=== PATIENT | female | born 1965 | race Caucasian/White ===

== ENCOUNTER 2021-05-14 02:31 | Emergency (ER) | payer OTHER ==
[~2021-05-14] VITALS: Ht 162.6 cm; Wt 63.5 kg
[2021-05-14 03:00] VITALS: BP 139/78
[2021-05-14] MEDS ORDERED: AMOX-430 PO (03:04)
[2021-05-14] MEDS ORDERED: AMOX/CLAVULANATE 875 MG TABLET ONE (03:18)
--- NOTE | 2021-05-14 03:21 | NUR ---
Patient discharged to home in stable condition. Written and verbal after care instructions given. Patient verbalizes understanding of instruction.
[2021-05-14] MEDS ORDERED: AMOX/CLAVULANATE 875 MG TABLET PO ONE (03:30)
== END 2021-05-14 03:21 | disposition home or self-care (01) ==
LOC: ER 02:54
DX: S60.412A Abrasion of right middle finger, initial encounter (principal); Z88.6 Allergy status to analgesic agent; W54.0XXA Bitten by dog, initial encounter; Y93.89 Activity, other specified; Y92.89 Other specified places as the place of occurrence of the external cause; Y99.8 Other external cause status

== ENCOUNTER 2022-12-03 16:01 | Emergency (ER) | payer MEDICARE, OTHER ==
[~2022-12-03] VITALS: Ht 162.6 cm; Wt 63.5 kg
[~2022-12-03 16:01] MED LIST: AMOX-430 PO
[2022-12-03 17:30] LABS: BASOPHILS % (AUTO) 0.7 % (0.0-2.0); EOSINOPHILS # (AUTO) 0.1 K/uL (0.0-0.7); EOSINOPHILS % (AUTO) 1.4 % (0.0-6.0); HEMATOCRIT 42 % (33-45); LYMPHOCYTES # (AUTO) 1.9 K/uL (0.8-4.8); LYMPHOCYTES % (AUTO) 35.8 % (20.0-44.0); MEAN CORPUSCULAR HEMOGLOBIN 31 PG (26.0-33.0); MEAN CORPUSCULAR HGB CONC 33 g/dl (31.0-36.0); MEAN CORPUSCULAR VOLUME 93 fL (82-100); MONOCYTES # (AUTO) 0.6 K/uL (0.1-1.30); MONOCYTES % (AUTO) 11.4 % (2.0-12.0); NEUTROPHILS # (AUTO) 2.7 K/uL (1.8-8.9); NEUTROPHILS % (AUTO) 50.7 % (43.0-81.0); PLATELET COUNT (AUTO) 306 K/uL (150-450); RED BLOOD CELL COUNT(AUTO) 4.55 MIL/uL (4.0-5.2); RED CELL DISTRIBUTION WIDTH 14.1 % (11.5-15.0); WHITE BLOOD COUNT (AUTO) 5.3 K/uL (4.3-11.0)
[2022-12-03 17:44] LABS: CALCIUM, SERUM 9.1 mg/dL (8.5-10.1); CARBON DIOXIDE 26 mmol/L (21-32); CHLORIDE 105 mmol/L (98-107); CREATININE 0.9 mg/dL (0.6-1.3); GLUCOSE 103 mg/dL (74-106); POTASSIUM 4.7 mmol/L (3.5-5.1); SODIUM SERUM 138 mmol/L (136-145); UREA NITROGEN, BLOOD 17 mg/dL (7-18)
[2022-12-03 18:05] LABS: INR 0.96 (0.91-1.10); PARTIAL THROMBOPLASTIN TIME 24.9 SEC (24.3-34.3); PROTHROMBIN TIME 10.1 SECS (9.2-11.1)
[2022-12-03] MEDS ORDERED: KETOROLAC TROMETHAMINE INJ 30 MG/ML VIAL IV ONE (19:30)
[2022-12-03] MEDS ORDERED: KETOROLAC TROMETHAMINE INJ 30 MG/ML VIAL ONE (19:43)
[2022-12-03 20:23] VITALS: BP 112/84; TEMP 98.4; O2SAT 96
== END 2022-12-03 20:23 | disposition home or self-care (01) ==
LOC: ER 16:11
DX: M62.838 Other muscle spasm (principal); R51.9 Headache, unspecified; Z79.899 Other long term (current) drug therapy; Z88.1 Allergy status to other antibiotic agents
CPT/HCPCS: 99285; 96374; 70450; 93005; 85025; 80048; 36415; 84484; 85730; J1885

== ENCOUNTER 2023-04-14 14:56 | Emergency (ER) | payer MEDICARE, OTHER ==
[~2023-04-14] VITALS: Ht 162.6 cm; Wt 64.0 kg
[2023-04-14] MEDS ORDERED: RABIES VACCINE (PCEC)/PF 1 EA KIT IM ONE (15:33)
[2023-04-14] MEDS ORDERED: AMOX-430 PO (15:38)
[2023-04-14] MEDS: RABIES IMMUNE GLOBULIN/PF 150 UNIT/ML VIAL IM ONE (15:45)
[2023-04-14] MEDS ORDERED: ACETAMINOPHEN ES 500 MG TABLET ONE (15:57)
[2023-04-14] MEDS ORDERED: AMOX/CLAVULANATE 875 MG TABLET ONE (15:58)
[2023-04-14] MEDS: RABIES VACCINE (PCEC)/PF 1 EA KIT IM ONE (16:00)
[2023-04-14] MEDS: AMOX/CLAVULANATE 875 MG TABLET PO ONE (16:00)
[2023-04-14] MEDS: ACETAMINOPHEN ES 500 MG TABLET PO ONE (16:00)
[2023-04-14 16:31] VITALS: BP 135/78; TEMP 98.5; O2SAT 100
== END 2023-04-14 16:32 | disposition home or self-care (01) ==
LOC: ER 15:05
DX: S71.152A Open bite, left thigh, initial encounter (principal); Z88.8 Allergy status to other drugs, medicaments and biological substances; W54.0XXA Bitten by dog, initial encounter; Y93.89 Activity, other specified; Y92.89 Other specified places as the place of occurrence of the external cause; Y99.8 Other external cause status
CPT/HCPCS: 90375

== ENCOUNTER 2023-11-19 10:36 | Emergency (ER) | payer MEDICARE, OTHER ==
[~2023-11-19] VITALS: Ht 162.6 cm; Wt 72.6 kg
--- NOTE | 2023-11-19 10:55 | NUR ---
"I fell down Lip laceration and arm hurts"
[2023-11-19] MEDS ORDERED: ONDANSETRON HCL/PF 4 MG/2 ML VIAL ONE (11:43)
[2023-11-19] MEDS: IV NS 0.9% 1,000 ML BAG IV ONE (11:57)
[2023-11-19] MEDS: ONDANSETRON HCL/PF 4 MG/2 ML VIAL IV ONE (11:58)
--- NOTE | 2023-11-19 12:41 | NUR ---
Patient discharged to home in stable condition. Written and verbal after care instructions given. Patient verbalizes understanding of instruction.
[2023-11-19 12:49] VITALS: BP 131/81; TEMP 98.3; O2SAT 95
== END 2023-11-19 12:49 | disposition home or self-care (01) ==
LOC: ER 10:36
DX: F10.129 Alcohol abuse with intoxication, unspecified (principal); R00.2 Palpitations; Z86.59 Personal history of other mental and behavioral disorders; Z88.6 Allergy status to analgesic agent
CPT/HCPCS: 99283; 96374; 96361; J2405; J7030

== ENCOUNTER 2024-07-03 11:23 | Emergency (ER) | payer MEDICARE, OTHER ==
[~2024-07-03] VITALS: Ht 162.6 cm; Wt 61.2 kg
[2024-07-03 11:30] VITALS: BP 102/70; TEMP 98.7; O2SAT 98
[2024-07-03] MEDS ORDERED: ACETAMINOPHEN ES 500 MG TABLET ONE (11:47)
[2024-07-03] MEDS ORDERED: IBUPROFEN 600 MG TABLET ONE (11:48)
[2024-07-03] MEDS: ACETAMINOPHEN ES 500 MG TABLET PO ONE (11:50)
[2024-07-03] MEDS: IBUPROFEN 600 MG TABLET PO ONE (11:50)
[2024-07-03] MEDS ORDERED: SULF1TAB48 PO (11:53)
[2024-07-03] MEDS ORDERED: CEPH-570 PO (11:53)
== END 2024-07-03 12:14 | disposition home or self-care (01) ==
LOC: ER 11:34
DX: L02.211 Cutaneous abscess of abdominal wall (principal); Z88.6 Allergy status to analgesic agent; Z79.899 Other long term (current) drug therapy